=== PATIENT | female | born 2000 | race Caucasian/White ===

== ENCOUNTER 2019-01-29 16:30 | Emergency (ER) | payer SELFPAY ==
--- NOTE | 2019-01-29 17:25 | ER Document Report ---
ED Medical Screen (RME) - General Chief Complaint: Abdominal Pain Stated Complaint: ABDOMINAL PAIN Time Seen by Provider: 01/29/19 17:20 Mode of Arrival: Ambulatory Information source: Patient Notes: Patient presents emergency department with reports of very heavy vaginal bleeding for the past 2 days. Reports she went through a box of tampons in 1 day. Reports before that she did not have her menses for 2 months. Complains of lower abdominal pain. Reports her mom thinks she has an ovarian cyst would like to be checked out by ultrasound for that. Denies fever vomiting diarrhea. I have greeted and performed a rapid initial assessment of this patient. A comprehensive ED assessment and evaluation of the patient, analysis of test results and completion of the medical decision making process will be conducted by additional ED providers. Dictation of this chart was performed using voice recognition software; therefore, there may be some unintended grammatical errors. TRAVEL OUTSIDE OF THE [place] IN LAST 30 DAYS: No - Related Data Allergies/Adverse Reactions: No Known Allergies Allergy (Unverified 01/29/19 17:18) Physical Exam - Vital signs Vitals: Temp Pulse Resp BP Pulse Ox 98.5 F 72 16 113/71 96 01/29/19 16:38 01/29/19 16:38 01/29/19 16:38 01/29/19 16:38 01/29/19 16:38 Course - Vital Signs Vital signs: Temp Pulse Resp BP Pulse Ox 98.5 F 72 16 113/71 96 01/29/19 16:38 01/29/19 16:38 01/29/19 16:38 01/29/19 16:38 01/29/19 16:38
[2019-01-29 18:01] LABS: ABSOLUTE EOSINOPHILS # (AUTO) 0.1 10^3/uL (0.0-0.6); ABSOLUTE LYMPHOCYTES (AUTO) 1.9 10^3/uL (0.5-4.7); ABSOLUTE MONOCYTES (AUTO) 0.5 10^3/uL (0.1-1.4); ABSOLUTE NEUT (AUTO) 7.7 10^3/uL (1.7-8.2); BASOPHILS % (AUTO) 0.4 % (0-2); EOSINOPHILS % (AUTO) 0.6 % (0-6); HEMATOCRIT 39.9 % (36.0-47.0); LYMPHOCYTES % (AUTO) 18.7 % (13-45); MEAN CORPUSCULAR HEMOGLOBIN 32.5 pg (27.0-33.4); MEAN CORPUSCULAR VOLUME 93 fl (80-97); MONOCYTES % (AUTO) 4.9 % (3-13); PLATELET COUNT 296 10^3/uL (150-450); RED BLOOD COUNT 4.29 10^6/uL (3.72-5.28); RED CELL DISTRIBUTION WIDTH 13.3 % (11.5-14.0); SEGMENTED NEUTROPHILS % (AUTO) 75.4 % (42-78); TOTAL CELLS COUNTED % (AUTO) 100 %; WHITE BLOOD COUNT 10.3 10^3/uL (4.0-10.5)
[2019-01-29 18:20] LABS: ALANINE AMINOTRANSFERASE 40 U/L (9-52); ALBUMIN 4.5 g/dL (3.5-5.0); ALKALINE PHOSPHATASE 82 U/L (38-126); ANION GAP 9 (5-19); ASPARTATE AMINO TRANSFERASE 26 U/L (14-36); BILIRUBIN,DIRECT 0.2 mg/dL (0.0-0.4); BILIRUBIN,TOTAL 0.6 mg/dL (0.2-1.3); BLOOD UREA NITROGEN 11 mg/dL (7-20); CALCIUM 9.6 mg/dL (8.4-10.2); CARBON DIOXIDE 29 mmol/L (22-30); CHLORIDE 102 mmol/L (98-107); GLUCOSE 84 mg/dL (75-110); POTASSIUM 4.3 mmol/L (3.6-5.0); SODIUM 140.1 mmol/L (137-145); TOTAL PROTEIN 7.6 g/dL (6.3-8.2)
[2019-01-29] MEDS ORDERED: HYDROCODONE/ACETAMINOPHEN 5-325 MG TABLET PO ONE (18:22)
--- NOTE | 2019-01-29 18:23 | ER Document Report ---
ED General - General Chief Complaint: Abdominal Pain Stated Complaint: ABDOMINAL PAIN Time Seen by Provider: 01/29/19 17:20 Mode of Arrival: Ambulatory Information source: Patient TRAVEL OUTSIDE OF THE [place] IN LAST 30 DAYS: No - HPI Patient complains to provider of: Severe pelvic pain and excessive vaginal bleeding Onset: Yesterday Onset/Duration: Sudden Quality of pain: Sharp Severity: Severe Pain Level: 4 Associated symptoms: denies: Chills, Diarrhea, Fever, Nausea, Vomiting Exacerbated by: Denies Relieved by: Denies Similar symptoms previously: No Recently seen / treated by doctor: No Notes: 18-year-old female reports that 2 months ago she was but had a miscarriage. Just started having a. Yesterday and has been having very heavy bleeding and severe cramping. Feeling weak and dizzy. No fevers or chills. Mom worried about ovarian cyst. - Related Data Allergies/Adverse Reactions: No Known Allergies Allergy (Unverified 01/29/19 17:18) Past Medical History - General Information source: Patient - Social History Smoking Status: Unknown if Ever Smoked Frequency of alcohol use: None Drug Abuse: None Family History: Reviewed & Not Pertinent Patient has suicidal ideation: No Patient has homicidal ideation: No Renal/ Medical History: Denies: Hx Peritoneal Dialysis Review of Systems - Review of Systems Notes: Constitutional: No fevers. No chills. EENT: No eye redness. No eye pain. No ear pain. No sore throat. Cardiovascular: No chest pain. No palpitations. Respiratory: No cough. No shortness of breath. No respiratory distress. Gastrointestinal: No abdominal pain. No nausea, vomiting, or diarrhea. Genitourinary: Positive pelvic cramping and bleeding Musculoskeletal: Atraumatic. No swelling. No deformities. Skin: No rash or lesions. Lymphatic: No swollen lymph nodes. Neurologic: No headache. No syncope. Psychiatric: No suicidal or homicidal ideation. Physical Exam - Vital signs Vitals: Temp Pulse Resp BP Pulse Ox 98.5 F 72 16 113/71 96 01/29/19 16:38 01/29/19 16:38 01/29/19 16:38 01/29/19 16:38 01/29/19 16:38 - Notes Notes: General: Well-developed, well-nourished. In no acute distress. Non-toxic appearing. Cardiac: Well-perfused. Regular rate and rhythm. No murmurs, rubs, or gallops. Pulmonary: No respiratory distress. No cyanosis. Bilateral lung fiels are clear to auscultation. Abdominal: Non-distended. Non-rigid. Bowels sounds are present in all four quadrants. No guarding or rebound. HEENT: Head is atraumatic. Conjunctivae not reddened. No tearing. PERRL. EOMI. Orbits atraumatic. No periorbital swelling or erythema. Oropharynx is without erythema, swelling, or exudates. Neck: Supple. No adenopathy. No meningismus. Dermatologic: Warm with good turgor. No rash. Atraumatic. Chest: Atraumatic. No chest wall tenderness to palpation. Musculoskeletal: Moves all extremities well. No range of motion deficits. no muscular or joint tenderness. No paraspinal muscle tenderness. no midline spinal tenderness or step-off. Genitourinary: Examination deferred Neurologic: No gross neurologic deficits. Psychiatric: Normal mood. Course - Re-evaluation Re-evalutation: 01/29/19 18:22 Appropriate work-up ordered from [facility]. 01/29/19 20:12 Lab work and ultrasound reviewed. Patient states it was at least a month ago when she was told that she had miscarried. Today's beta-hCG is a little over 150. I certainly would have expected her number to be undetectable by now had this been her original . Suspect she may be again. Given her symptoms of heavy bleeding and cramping and dizziness I warned her that this could be a sign that she is already miscarrying again. On the contrary, also we need to be concerned about a possible ectopic if he keeps getting higher and no intrauterine is seen on ultrasound. In any event patient will return in 2 days for repeat hCG to see if she is miscarrying or if this is a new that is moving forward. - Vital Signs Vital signs: Temp Pulse Resp BP Pulse Ox 98.5 F 72 16 113/71 96 01/29/19 16:38 01/29/19 16:38 01/29/19 16:38 01/29/19 16:38 01/29/19 16:38 - Laboratory Result Diagrams: 01/29/19 17:47 06/29/19 17:47 Laboratory results interpreted by me: 01/29/19 01/29/19 01/29/19 17:47 17:47 18:43 Serum HCG, Qual POSITIVE H Beta HCG, Quant 115.90 H Urine Blood LARGE H Ur Leukocyte Esterase MODERATE H Discharge - Discharge Clinical Impression: Positive test, Vaginal bleeding, Abdominal cramping Condition: Good Disposition: HOME, SELF-CARE Additional Instructions: Your hormone level is a little over 150. If you truly miscarried about a month ago your numbers should be quite a bit lower than this. We suspect that you may have gotten again. With all of this heavy cramping and bleeding, you may BE HAVING another miscarriage. We do not see any evidence of on the ultrasound, however it is extremely early and very unlikely we would have YOU see any sign of at this point in time. What we must do is have you return in 2 days to see if your hormone levels are increasing or decreasing. As long as they are continuing to increase you most likely have a DEVELOPING . Over time we will need to determine if this is an intrauterine healthy or an ectopic nonviable . We will figure this out in time. [facility] - Follow up as needed
[2019-01-29 19:08] LABS: AMORPHOUS SEDIMENT,URINE TRACE /HPF; APPEARANCE,URINE CLOUDY; BILIRUBIN,URINE NEGATIVE (NEGATIVE); COLOR,URINE YELLOW; GLUCOSE, URINE NEGATIVE (NEGATIVE); KETONES,URINE NEGATIVE (NEGATIVE); LEUKOCYTE ESTERASE,URINE MODERATE (NEGATIVE); NITRITE,URINE NEGATIVE (NEGATIVE); PROTEIN,URINE NEGATIVE (NEGATIVE); URINE SPECIFIC GRAVITY 1.023; UROBILINOGEN,URINE NEGATIVE mg/dL (<2.0)
--- NOTE | 2019-01-29 19:30 | RADIOLOGY REPORT (SQ) ---
EXAM DESCRIPTION: U/S OB TRANSVAG W/DOPPLER COMPLETED DATE/TIME: 01/29/2019 6:51 pm REASON FOR STUDY: lower abd pain, ? cyst, heavy vag bleed COMPARISON: None. TECHNIQUE: Dynamic and static grayscale images acquired of the pelvis via transvaginal approach and recorded on PACS. Additional selected color Doppler and spectral images recorded. LIMITATIONS: None. FINDINGS: UTERUS: The uterus measures 9 x 3.9 x 5.5 cm. No abnormality seen. ENDOMETRIAL STRIPE: The endometrium measures 5.3 mm. No evidence of yolk sac or pole within th e uterus. CERVIX: The cervix measures 3.2 cm. No nabothian cysts. RIGHT OVARY AND DOPPLER: The right ovary measures 3.8 x 2.3 x 1.7 cm demonstrating normal echogenicit y. Doppler flow to right ovary. LEFT OVARY AND DOPPLER: The left ovary measures 3.1 x 2.8 x 2.3 cm demonstrating normal echogenicity. Doppler flow the left ovary. FREE FLUID: None noted. OTHER: No other significant finding. IMPRESSION: Given history of positive test ,follow-up with serial beta hCGs could be obtai anastasiya with follow-up ultrasound within 7 - 14 days. No evidence of an intrauterine . TECHNICAL DOCUMENTATION: JOB ID: [id number] 2010 [employer]- All Rights Reserved Rev Reading location - IP/workstation name: [email or web address]
[2019-01-29 20:23] VITALS: BP 114/72
== END 2019-01-29 20:29 | disposition home or self-care (01) ==
LOC: ER 16:30
DX: Z32.01 Encounter for pregnancy test, result positive (principal); O46.91 Antepartum hemorrhage, unspecified, first trimester; O26.891 Other specified pregnancy related conditions, first trimester; R10.9 Unspecified abdominal pain; R10.2 Pelvic and perineal pain; R53.1 Weakness; R42 Dizziness and giddiness; Z3A.00 Weeks of gestation of pregnancy not specified
CPT/HCPCS: 36415; 76817; 80053; 81001; 84702; 84703; 85025; 93976; 99284

== ENCOUNTER 2019-03-21 18:52 | Emergency (ER) | payer SELFPAY ==
[2019-03-21 19:08] VITALS: BP 100/73
[2019-03-21] MEDS ORDERED: ACETAMINOPHEN 325 MG TABLET PO ONE (20:52)
[2019-03-21] MEDS ORDERED: IBUPROFEN 600 MG TABLET PO ONE (20:52)
--- NOTE | 2019-03-21 22:05 | RADIOLOGY REPORT (SQ) ---
EXAM DESCRIPTION: XR SHOULDER 2 OR MORE VIEWS COMPLETED DATE/TME: 03/21/2019 00:00 CLINICAL HISTORY: 18 years, Female, pain with movement COMPARISON: None. NUMBER OF VIEWS: 3 TECHNIQUE: 3 view left shoulder LIMITATIONS: None. FINDINGS: Negative for fracture or dislocation. Soft tissues are unremarkable IMPRESSION: Negative exam copyright 2010 [employer]- All Rights Reserved
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
== END 2019-03-21 23:05 | disposition home or self-care (01) ==
LOC: ER 18:52
DX: M25.512 Pain in left shoulder (principal); F12.10 Cannabis abuse, uncomplicated

== ENCOUNTER → 2020-02-16 | Outpatient (CLI) | payer SELFPAY ==
--- NOTE | 2020-02-16 14:59 | RADIOLOGY REPORT (SQ) ---
EXAM DESCRIPTION: U/S OB 14+ TRNABD 1GES W/O DOP IMAGES COMPLETED DATE/TIME: 02/16/2020 2:25 pm REASON FOR STUDY: Z34.82 ENCOUNTER FOR SUPRVSN OF NORMAL , SECOND TRIMESTER Z34.82 ENCOUNT ER FOR SUPRVSN OF NORMAL , SECOND TRI COMPARISON: None. TECHNIQUE: Static and Dynamic grayscale imaging performed of gravid uterus using transabdominal appr oach. Additional selected color Doppler and spectral images recorded. All stored on PACS. LIMITATIONS: None. FINDINGS: FETUSES SEEN:1 EGA: 19 week 4 day. Calculated using BPD,FL,HC,AC documented on images. Clinical dates 18 week 2 day . IRMA: 07/08/2020. EFW: 293 g. PERCENTILE: Not applicable. Fetus less than or equal to 20 weeks gestation. LVP: 2.8 x 3.8 cm. PLACENTA: Posterior. PRESENTATION: Breech. ANATOMY: HEART RATE: 152 beats per minute. FOUR CHAMBER HEART: Visualized. THREE VESSEL CORD: Yes. CORD INSERTION: Visualized. KIDNEYS AND BLADDER: Visualized. Appear normal. STOMACH: Visualized. Appears normal. SPINE: Normal as visualized. BRAIN AND LATERAL VENTRICLES: Visualized. Appear normal. OTHER: No other significant finding. MATERNAL ADNEXA: Maternal ovaries not visualized. CERVICAL LENGTH: 4.3 cm. Closed. OTHER: No other significant finding. IMPRESSION: LIVING INTRAUTERINE . ESTIMATED GESTATIONAL AGE 19 WEEK 4 DAY. NO VISUALIZED ANOMALIES. Trimester of : Second trimester - 13 weeks 1 day to 27 weeks 6 days. TECHNICAL DOCUMENTATION: JOB ID: [id number] 2010 [employer]- All Rights Reserved Reading location - IP/workstation name: [email or web address]
== END ==
LOC: RAD 13:20
PROVIDERS: ATTEND Midwife
DX: Z34.82 Encounter for supervision of other normal pregnancy, second trimester (principal); Z3A.19 19 weeks gestation of pregnancy
CPT/HCPCS: 76805